=== PATIENT | female | born 1980 | race Asian ===

== ENCOUNTER 2017-11-02 22:35 | Emergency (ER) | payer SELFPAY ==
[~2017-11-02] VITALS: Ht 162.6 cm; Wt 59.0 kg
[2017-11-02 22:35] VITALS: BP 111/75
--- NOTE | 2017-11-02 23:50 | Emergency Room Report ---
History of Present Illness General Chief Complaint: Alcohol Intoxication Source: Patient, EMS Present Illness HPI This is a 37-year-old female who present with altered mental status. She was at a concert and was drinking heavily. She went to the bathroom apparently must have fallen and hurt her knee. She was also vomiting. Someone took her to the EMS hent and they called 911. Patient does not know what happened. She has no head injury. Patient denies any nausea vomiting. Denies any suicidal thought. After sometimes, her friends showed up and said that patient went to the bathroom and did not return to her seat. Allergies: Coded Allergies: UNABLE TO ASSESS (Unverified , 11/02/17) Patient History Past Medical History: see triage record, old chart reviewed Past Surgical History: none Pertinent Family History: none Social History: Denies: smoking Now: No - Unknown Immunizations: other Reviewed Nursing Documentation: PMH: Agreed; PSxH: Agreed Nursing Documentation-PMH Past Medical History Deferred: Pt Cognitively Impaired Review of Systems Eye: Denies: eye pain, blurred vision ENT: Denies: ear pain, nose congestion, throat swelling Respiratory: Denies: cough, shortness of breath Cardiovascular: Denies: chest pain, palpitations Gastrointestinal: Denies: abdominal pain, diarrhea, nausea, vomiting Musculoskeletal: Denies: back pain, joint pain Skin: Denies: rash Neurological: Denies: headache, numbness Endocrine: Denies: increased thirst, increased urine Hematologic/Lymphatic: Denies: easy bruising All Other Systems: negative except mentioned in HPI Physical Exam Vital Signs Date Time Temp Pulse Resp B/P (MAP) Pulse Ox O2 Delivery O2 Flow Rate FiO2 11/02/17 22:31 74 14 111/75 99 Room Air vitals normal Sp02 EP Interpretation: reviewed, normal General Appearance: well appearing, no apparent distress, alert Head: normocephalic, atraumatic Eyes: bilateral eye PERRL, bilateral eye EOMI ENT: hearing grossly normal, normal pharynx Neck: full range of motion, supple, no meningismus Respiratory: chest non-tender, lungs clear, normal breath sounds Cardiovascular #1: regular rate, rhythm, no murmur Gastrointestinal: normal bowel sounds, non tender, no mass, no organomegaly, no bruit, non-distended Musculoskeletal: back normal, gait/station normal, normal range of motion, other - abrasion to knees Neurologic: alert, oriented x3 Psychiatric: mood/affect normal Skin: warm/dry Medical Decision Making Diagnostic Impression: Primary Impression: Acute alcoholic intoxication Qualified Codes: F10.929 - Alcohol use, unspecified with intoxication, unspecified Additional Impression: Abrasion of knee, bilateral ER Course Patient with abrasion to her knee from a fall. No fracture dislocation. No head injury. She is alert now. Still intoxicated but will go home with her friend. Last Vital Signs Date Time Temp Pulse Resp B/P (MAP) Pulse Ox O2 Delivery O2 Flow Rate FiO2 11/02/17 22:35 77 14 111/75 99 Room Air Status: improved Disposition: HOME, SELF-CARE Condition: Stable Referrals: NOT CHOSEN IPA/MD,REFERRING (PCP) Patient Instructions: Alcohol Intoxication, [id number] Additional Instructions: follow-up with your Dr. In 7 days. Return if worse. OLGA RUBIN M.D. Nov 02, 2017 23:50
[2017-11-02 23:56] VITALS: BP 96/58
[2017-11-03 00:05] VITALS: BP 96/58
== END 2017-11-03 00:05 | disposition home or self-care (01) ==
LOC: EDBD 22:35 → EMR 23:05 → EDBD 23:05 → EMR 11-03 00:05
DX: F10.129 Alcohol abuse with intoxication, unspecified (principal); S80.212A Abrasion, left knee, initial encounter; S80.211A Abrasion, right knee, initial encounter; W19.XXXA Unspecified fall, initial encounter; Y92.254 Theater (live) as the place of occurrence of the external cause
CPT/HCPCS: 99283